=== PATIENT | male | born 1985 | race American Indian/Alaskan Native ===

== ENCOUNTER 2018-01-19 22:29 | Emergency (ER) | payer SELFPAY ==
[2018-01-20 00:58] LABS: Bilirubin,Urine NEG (Negative); Blood,Urine NEG (Negative); Color,Urine Yellow (Yellow); Mucus,Urine FEW /HPF; Protein,Urine <15 mg/dL mg/dL (Negative)
[2018-01-20 01:00] LABS: WBC,Urine > 182.0 /HPF (0.0-6.0)
[2018-01-20 01:13] VITALS: BP 134/74
[2018-01-20] MEDS ORDERED: ZITHROMAX PO ONE (01:59)
[2018-01-20] MEDS ORDERED: ROCEPHIN IM ONE (01:59)
[2018-01-20] MEDS ORDERED: XYLOCAINE 1% MPF 5 mL INFILTRATI ONE (01:59)
--- NOTE | 2018-01-20 02:00 | Emergency Department Report ---
ED Male HPI - General Chief complaint: Urogenital-Male Stated complaint: PENILE DISCHARGE Time Seen by Provider: 01/20/18 01:58 Source: patient Mode of arrival: Ambulatory Limitations: No Limitations - History of Present Illness Initial comments: 32-year-old Afro-[place] male comes in with yellowish penile discharge times one week with urinary burning. Patient denies any fever chills or nausea or vomiting. He does report he sexually active with females 2 partners and unprotected. He reports he has a history of STDs back in 2000. Patient denies any abdominal pain testicular pain or testicular swelling. Patient has no known drug allergies. MD Complaint: penile discharge -: week(s) (1) Quality: burning Consistency: intermittent Improves with: none Worsens with: urination discharge, dysuria. denies: swelling, mass, urinary retention, blood in urine - Related Data Sexually active: Yes (2 partners female unprotected) Previous Rx's Medication Instructions Recorded Last Taken Type Doxycycline [Vibramycin CAP] 100 mg PO Q12HR 10 Days #20 capsule 01/20/18 Unknown Rx Allergies Allergy/AdvReac Type Severity Reaction Status Date / Time No Known Allergies Allergy Unverified 01/19/18 23:20 ED Review of Systems ROS: Stated complaint: PENILE DISCHARGE Other details as noted in HPI Constitutional: denies: chills, fever Gastrointestinal: denies: abdominal pain, nausea, vomiting, diarrhea Genitourinary: dysuria, discharge ED Past Medical Hx - Past Medical History Previous Medical History?: No - Surgical History Past Surgical History?: No - Social History Smoking Status: Never Smoker Substance Use Type: None - Medications Home Medications: Home Medications Medication Instructions Recorded Confirmed Last Taken Type Doxycycline [Vibramycin CAP] 100 mg PO Q12HR 10 Days #20 capsule 01/20/18 Unknown Rx ED Physical Exam - General Limitations: No Limitations General appearance: alert, in no apparent distress - Head Head exam: Present: atraumatic, normocephalic - Eye Eye exam: Present: EOMI - GI/Abdominal GI/Abdominal exam: Present: soft. Absent: distended, tenderness - exam: Present: urethral discharge, vertical testicular lie, circumcision. Absent: testicular tenderness, scrotal swelling External exam: Absent: swelling, lesions - Neurological Exam Neurological exam: Present: alert, oriented X3 - Psychiatric Psychiatric exam: Present: normal affect, normal mood - Skin Skin exam: Present: warm, dry, intact, normal color. Absent: rash ED Course Vital Signs 01/19/18 01/19/18 01/20/18 22:27 23:16 01:12 Temperature 98.7 F 98.7 F 97.8 F Pulse Rate 69 64 72 Respiratory 18 18 18 Rate Blood Pressure 136/79 136/79 Blood Pressure 134/74 [Left] O2 Sat by Pulse 97 99 99 Oximetry ED Medical Decision Making - Medical Decision Making Patient has been evaluated by this provider fast track. Patient will be treated for gonorrhea and chlamydia. Rocephin 250 mg IM, azithromycin 1 g by mouth. Discharge home on doxycycline 100 mg by mouth twice a day for 10 days. Discussed with patient he needs to inform his sexual partners he's been tested and treated for STDs. Patient needs to refrain from intercourse for 2 weeks. Patient verbalized understanding Critical care attestation.: If time is entered above; I have spent that time in minutes in the direct care of this critically ill patient, excluding procedure time. ED Disposition Clinical Impression: Sexually transmitted disease (STD), Abnormal penile discharge, Dysuria Disposition: DC-01 TO HOME OR SELFCARE Is pt being admited?: No Does the pt Need Aspirin: No Condition: Stable Instructions: Sexually Transmitted Diseases (ED), Safe Sex (ED) Additional Instructions: Complete antibiotics as prescribed. Please inform your sexual partners that you 've been tested and treated for STDs. Please refrain from intercourse for 2 weeks. Please use condoms to prevent STDs as well as HIV. I highly recommend for you to follow up with the health department to have HIV syphilis herpes testing. Prescriptions: Doxycycline [Vibramycin CAP] 100 mg PO Q12HR 10 Days #20 capsule Referrals: PRIMARY CARE, [Primary Care Provider] - 3-5 Days [facility] [Outside] - 3-5 Days [facility] [Outside] - 3-5 Days [facility] [Outside] - 3-5 Days [facility] [Outside] - 3-5 Days [facility] [Outside] - 3-5 Days
== END 2018-01-20 02:37 | disposition home or self-care (01) ==
LOC: ED 22:29
DX: R36.9 Urethral discharge, unspecified (principal); A64 Unspecified sexually transmitted disease; R30.0 Dysuria
CPT/HCPCS: 81001; 87591; 96372; 99283; J0696

== ENCOUNTER 2018-10-19 05:38 | Emergency (ER) | payer BC ==
[2018-10-19 06:50] LABS: Bilirubin,Urine NEG (Negative); Blood,Urine SM (Negative); Color,Urine Yellow (Yellow); Mucus,Urine 1+ /HPF
[2018-10-19 06:51] LABS: WBC,Urine > 182.0 /HPF (0.0-6.0)
[2018-10-19] MEDS ORDERED: ZITHROMAX PO ONE (09:02)
[2018-10-19] MEDS ORDERED: ROCEPHIN IM ONE (09:03)
[2018-10-19] MEDS ORDERED: XYLOCAINE 1% MPF 5 mL INFILTRATI ONE (09:03)
--- NOTE | 2018-10-19 09:09 | Emergency Department Report ---
ED General Adult HPI - General Chief complaint: Urogenital-Male Stated complaint: DISCHARGE FROM PENIS Time Seen by Provider: 10/19/18 09:01 Source: patient Mode of arrival: Ambulatory Limitations: No Limitations - History of Present Illness Initial comments: 33-year-old male with prior history of sexually transmitted disease. He states he had a negative HIV test 6 months ago. He would like to get another one done today. He has had a urethral discharge which is yellow in color but no rash or lesions. He does not report any systemic symptoms. He is able to urinate. He does not have a primary care physician. -: Gradual Radiation: other (no pain complaint) Associated Symptoms: denies other symptoms - Related Data Previous Rx's Medication Instructions Recorded Last Taken Type DOXYCYCLINE Hyclate [Vibramycin 100 mg PO Q12HR 10 Days #20 capsule 01/20/18 Unknown Rx CAP] cefUROXime [Ceftin] 250 mg PO Q12H #14 tablet 10/19/18 Unknown Rx Allergies Allergy/AdvReac Type Severity Reaction Status Date / Time No Known Allergies Allergy Unverified 01/19/18 23:20 ED Review of Systems ROS: Stated complaint: DISCHARGE FROM PENIS Other details as noted in HPI Constitutional: denies: chills, fever Eyes: denies: eye pain, eye discharge, vision change ENT: denies: ear pain, throat pain Respiratory: denies: cough, shortness of breath, wheezing Cardiovascular: denies: chest pain, palpitations Endocrine: no symptoms reported Gastrointestinal: denies: abdominal pain, nausea, diarrhea Genitourinary: as per HPI, discharge. denies: urgency, dysuria Musculoskeletal: denies: back pain, joint swelling, arthralgia Skin: denies: rash, lesions Neurological: denies: headache, weakness, paresthesias Psychiatric: denies: anxiety, depression Hematological/Lymphatic: denies: easy bleeding, easy bruising ED Past Medical Hx - Past Medical History Previous Medical History?: No - Surgical History Past Surgical History?: No - Social History Smoking Status: Current Every Day Smoker Substance Use Type: None - Medications Home Medications: Home Medications Medication Instructions Recorded Confirmed Last Taken Type DOXYCYCLINE Hyclate [Vibramycin 100 mg PO Q12HR 10 Days #20 capsule 01/20/18 Unknown Rx CAP] cefUROXime [Ceftin] 250 mg PO Q12H #14 tablet 10/19/18 Unknown Rx ED Physical Exam - General Limitations: No Limitations General appearance: alert, in no apparent distress - Head Head exam: Present: atraumatic, normocephalic - Eye Eye exam: Present: normal appearance - ENT ENT exam: Present: mucous membranes moist - Neck Neck exam: Present: normal inspection - Respiratory Respiratory exam: Present: normal lung sounds bilaterally. Absent: respiratory distress - Cardiovascular Cardiovascular Exam: Present: regular rate, normal rhythm. Absent: systolic murmur, diastolic murmur, rubs, gallop - GI/Abdominal GI/Abdominal exam: Present: soft, normal bowel sounds. Absent: distended, tenderness, guarding, rebound, rigid - Rectal Rectal exam: Present: deferred - External exam: Present: other (nurses obtained a sample from the urethra yellow discharge. No other observations reported.) - Extremities Exam Extremities exam: Present: normal inspection - Back Exam Back exam: Present: normal inspection - Neurological Exam Neurological exam: Present: alert, oriented X3, CN II-XII intact. Absent: motor sensory deficit - Psychiatric Psychiatric exam: Present: normal affect, normal mood - Skin Skin exam: Present: warm, dry, intact, normal color. Absent: rash ED Course - Reevaluation(s) Reevaluation #1: Ceftriaxone and azithromycin. Patient does have substantial pyuria. He will be continued on Ceftin pending culture. 10/19/18 09:06 Critical care attestation.: If time is entered above; I have spent that time in minutes in the direct care of this critically ill patient, excluding procedure time. ED Disposition Clinical Impression: Urethritis, Pyuria Disposition: DC-01 TO HOME OR SELFCARE Is pt being admited?: No Does the pt Need Aspirin: No Condition: Stable Instructions: Gonococcal Urethritis (ED), Nonspecific Urethritis in Men (ED) Additional Instructions: Unprotected intercourse is not recommended. Further evaluation at the health department to include HIV testing is recommended. Follow-up on your urine culture as well. Sse referrals. Prescriptions: cefUROXime [Ceftin] 250 mg PO Q12H #14 tablet Referrals: NANCY CAMARILLO MD [Primary Care Provider] - 3-5 Days [facility] [Provider Group] - 3-5 Days [facility] [Outside] - 3-5 Days Forms: STI Treatment and Prevention Time of Disposition: 09:08
[2018-10-19 09:25] VITALS: BP 134/78
== END 2018-10-19 09:25 | disposition home or self-care (01) ==
LOC: ED 05:38
DX: N34.2 Other urethritis (principal); F17.200 Nicotine dependence, unspecified, uncomplicated
CPT/HCPCS: 81001; 87086; 87591; 96372; 99283; J0696